=== PATIENT | male | born 1960 | race Caucasian/White ===

== ENCOUNTER → 2024-11-29 14:49 | Outpatient (REF) | payer BC, SELFPAY ==
--- NOTE | 2024-11-29 15:51 | CARDSERVLU ---
Echocardiogram with Lumason completed after protocol screening completed. Allergies verified.
Patent IV site: _Rt hand___
IV site flushed with 0.9% NaCl pre and post administration.
Diluted bolus method utilized to enhance visualization of ventricular [place].
Total volume given: __3.5__ mL
Patient tolerated all procedures well without complications.
== END ==
LOC: RCS 14:49
PROVIDERS: ATTENDING PHYSICIAN Internal Medicine Cardiovascular Disease; FAMILY PHYSICIAN Nurse Practitioner
DX: I25.5 Ischemic cardiomyopathy (principal)
CPT/HCPCS: 93306; Q9950

== ENCOUNTER → 2025-03-07 08:07 | Outpatient (REF) | payer BC, SELFPAY | LOC: RAD 08:07 | PROVIDERS: ATTENDING PHYSICIAN Internal Medicine Cardiovascular Disease; FAMILY PHYSICIAN Nurse Practitioner | DX: I51.3 Intracardiac thrombosis, not elsewhere classified (principal); E04.9 Nontoxic goiter, unspecified | CPT/HCPCS: 76536; 93307; Q9957 ==

== ENCOUNTER → 2025-04-02 12:01 | Outpatient (REF) | payer BC, SELFPAY ==
[2025-04-02 12:15] VITALS: BP 161/93; BP_SYST 69
== END ==
LOC: RADI 12:01
PROVIDERS: ATTENDING PHYSICIAN Otolaryngology; FAMILY PHYSICIAN Nurse Practitioner
DX: E04.1 Nontoxic single thyroid nodule (principal)
CPT/HCPCS: 10005; 88173